=== PATIENT | female | born 1955 | race Caucasian/White ===

== ENCOUNTER → 2019-04-22 13:49 | Outpatient (CLI) | payer OTHER, SELFPAY ==
[2019-04-22 15:53] LABS: AST(SGOT) 23 U/L (15-37); Alanine Aminotransfer ALT/SGPT 29 U/L (13-56); Albumin, Serum 3.4 g/dL (3.2-5.0); Alkaline Phosphatase 178 U/L (45-117); Bilirubin, Direct 0.05 mg/dL (0.00-0.30); GGTP 25 U/L (5-55); Globulin 3.4 g/dL (2.2-4.2); Protein, Total 6.8 g/dL (6.4-8.2)
[2019-04-25 17:44] LABS: ANTINUCLEAR ANTIBODIES DIRECT Negative (Negative); Anti-Mitochondrial AB <20.0 Units (0.0-20.0)
== END ==
PROVIDERS: PCP Nurse Practitioner Primary Care; Referring Provider Internal Medicine Gastroenterology; Visit Provider Internal Medicine Gastroenterology
DX: K75.9 Inflammatory liver disease, unspecified (principal)
CPT/HCPCS: 36415; 80076; 82977; 83516; 86038